=== PATIENT | male | born 1975 | race Caucasian/White ===

== ENCOUNTER 2022-09-11 08:50 | Emergency (ER) | payer SELFPAY ==
[2022-09-11 09:08] VITALS: BP 180/93; PULSE 55; RESP 16; TEMP 37; O2SAT 98
--- NOTE | 2022-09-11 09:30 | DI.CT_ITS ---
Exam(s) CT ABDOMEN PELVIS W EXAM: CT ABDOMEN PELVIS W CLINICAL HISTORY: lower abdominal pain. TECHNIQUE: Imaging Protocol: Axial computed tomography images with coronal and sagittal reformatted images were created and reviewed CONTRAST MATERIAL: Intravenous: Omnipaque-350 100cc Oral: None COMPARISON: No exams were available for comparison FINDINGS: VISUALIZED LUNG BASES: No nodules nor pleural effusions evident. ABDOMEN: There is no ascites. LIVER: There are no focal hepatic lesions evident . GALLBLADDER/BILIARY: No obvious gallbladder pathology. CBD is not dilated. PANCREAS: No evidence of pancreatic mass nor dilatation of the pancreatic duct. SPLEEN: Spleen is not enlarged. No obvious intrasplenic lesions. Splenic and portal veins are paten t. ADRENALS: There are no significant adrenal masses. KIDNEYS: Right kidney is slightly malrotated. No evidence of horseshoe kidney. No cysts evident. N o solid renal masses. No calculi nor hydronephrosis.. ABDOMINAL AORTA: Abdominal aorta is not enlarged. LYMPH NODES:There is no retroperitoneal nor paraaortic adenopathy. ABDOMINAL WALL: No evidence of significant anterior abdominal wall nor inguinal hernia. GI: There is no evidence of bowel obstruction, free air, nor abscess. PELVIS: GI: No evidence of obvious appendicitis.Sigmoid diverticulosis. No obvious acute diverticulitis. LYMPH NODES: There is no intrapelvic nor inguinal adenopathy. REPRODUCTIVE: Prostate size normal. URINARY BLADDER: Collapsed. No obvious abnormality. OSSEOUS: No fractures. No significant osseous lesions. IMPRESSION: 1. Sigmoid diverticulosis without obvious acute diverticulitis. 2. Appendix is difficult to identify on this study but there is no inflammatory streaking in the righ t lower quadrant to suggest obvious acute appendicitis. 3. No obvious acute abnormality in the abdomen pelvis. 4. No ascites. RADIATION DOSE DELIVERED: 803.52mGy.cm Total DLP DATA REPOSITORY: All CT scans at this facility are submitted to the National Radiology Data Registry (NRDR) Dose Index Registry (DIR) with the [employer] (A[employer]). RADIATION OPTIMIZATION: All CT scans at this facility use at least one of these dose optimization te chniques: automated exposure control; mA and/or kV adjustment per patient size (includes targeted exa ms where dose is matched to clinical indication); or iterative reconstruction.
--- NOTE | 2022-09-11 09:38 | W.ED.GENAD ---
Discharge Plan Disposition Patient Disposition: Home Condition: Stable Discharge Details Chief Complaint: Abd Prob Clinical Impression: Abdominal pain Primary Care Provider: Matteo Quinonez ED Provider: Lonnie Flores Home Meds and New Rx's Prescriptions: No Action No Known Home Meds Discharge Instructions Instructions: Abdominal Pain (ED) Additional Instructions: Your blood work and cat scan do not show any concerning findings at this time follow up with your primary care provider especially if symptoms are not improving if you feel more ill, have severe worsening pain or persistent vomiting return to the emergency department Medical Decision Making 47 yo male who denies chronic medical problems comes in with one week of intermittent lower abdominal discomfort. He states he has never had symptoms like this in the past. Denies dysuria, fevers, chills, testicle pain. He arrives stable and localizes the pain to the left lower and right lower abdomen. He has a soft nondistended abdomen, no tenderness in the upper abdomen, is tender in the rlq and llq without guarding, no testicle swelling or tenderness. Unclear etiology for his symptoms, will obtain cbc, cmp, lipase and ct abdomen/pelvis to further evaluate labs and imaging unremarkable. HE is stable and now has no tenderness on exam, unclear etiology for his pain but given reassuring workup he is stable for d/c, advised to f/u with pcp, return precautions given Differential Diagnosis Differential Diagnosis: diverticulitis, cystitis, appendicitis Imaging Data Radiologic Study: Attestation: I personally reviewed and interpreted this imaging study as follows: Imaging: CT Scan Radiologist's impression: no acute findings Lab Data Lab results reviewed: Yes I reviewed the patient's lab results. HPI General Mode of arrival: ambulatory. Date/Time Provider Initiated Documentation: 09/11/22 08:51. Limitations to Documentation: no limitations. Information obtained by: patient. History of Present Illness 47 year old M presents to the emergency department with the chief complaint of abdominal pain, described as moderate, Patient started experiencing this week(s) (1) and it has been constant. No relieving factors improve symptom(s), No exacerbating factors reported . Patient notes no other symptoms.. Patient did receive the following treatments prior to arrival, none Related Data Home Medications Medication Instructions Recorded Confirmed Unknown [No Known Home Meds] 10/01/21 09/11/22 Allergies Allergy/AdvReac Type Severity Reaction Status Date / Time No Known Allergies Allergy Unverified 09/11/22 09:12 General Stated Complaint: Abd Prob DERIK: 4 Review of Systems All systems reviewed & are unremarkable except as noted in HPI and below Constitutional Constitutional: Denies chills, Denies fever(s) and Denies weakness Eyes Eyes: Denies loss of vision Cardiovascular Cardiovascular: Denies chest pain and Denies dyspnea Respiratory Respiratory: Denies cough and Denies dyspnea Gastrointestinal Gastrointestinal: Denies nausea and Denies vomiting Musculoskeletal Musculoskeletal: Denies joint swelling Integumentary/Breasts Skin/Breast: Denies rash Neurologic Neurologic: Denies loss of vision and Denies weakness PFSH All Active Problems (Updated 09/11/22 @ 10:43 by Lonnie Flores MD) Abdominal pain (Acute) Heart murmur (Acute) Family History (Updated 09/24/21 @ 15:24 by Babs Lan) Father Alcohol use disorder Mother Hypertension Brother Hypertension Social History (Updated 10/01/21 @ 10:47 by Aline Lechuga LPN) Smoking/Tobacco Use Status: Former Tobacco Use Tobacco: How many years used: 5 Smoking risk assessment performed?: Yes Alcohol Intake: never Drug use: Daily Substance use type: marijuana Adopted: No Caregiver/Support person: No Foster care: No Household members: none Housing: apartment Number of Children: 1 number of grandchildren: 0 Communication Needs: None Education Level: high school Do you need help understanding health information?: Never current occupation: [employer] Pets and animals: No Sexually active: No Do you think of yourself as: straight/heterosexual Current gender identity: male What is your relationship status?: How often do you talk on the phone with friends or family?: three or more times per week How often do you get together with friends or relatives?: twice per week Do you belong to any clubs or organized social groups?: no Panel score (0-1 are the most socially isolated patients): 1 What type of physical activity do you participate in: weight lifting and running Duration: 60-90 minutes/day Frequency: daily Tamy/Roman Catholic: None Special tamy needs: No Seatbelt use: always Helmet use: Yes Helmet use: always Drive intox or ride w/intox otr company driver: No Working smoke detector in home: Yes Fire extinguisher in home: Yes Carbon monox detector in home: Yes Do you feel safe at home: Yes Do you feel safe in your relationship?: Yes Victim of physical abuse: No Victim of emotional abuse: No Victim of sexual abuse: No Exam Const General: no acute distress Orientation: alert HENMT Head: normal to inspection Ears: external ears normal General nose exam: external nose normal Mouth: moist mucous membranes Eyes General: appearance normal, both eyes and all related structures Neck Neck: normal visual inspection Resp Effort & Inspection: normal respiratory effort and able to speak in complete sentences Cardio Rate: regular rate GI Palpation: soft and tender Skin General skin exam: no rashes or lesions noted Neuro General: patient alert and patient oriented x3 Extrem General: normal to inspection Psych Mental Status: mental status grossly normal Course Vital Signs Vital signs: Vital Signs Temperature 37.0 C 09/11/22 09:08 Pulse 55 L 09/11/22 09:08 Respiratory Rate 16 09/11/22 09:08 Blood Pressure 180/93 H 09/11/22 09:08 Pulse Oximetry 98 09/11/22 09:08 Temperature 37.0 C 09/11/22 09:08 Temperature Source Skin 09/11/22 09:08 Pulse 55 L 09/11/22 09:08 Respiratory Rate 16 09/11/22 09:08 Blood Pressure 180/93 H 09/11/22 09:08 Blood Pressure Position Sitting 09/11/22 09:08 Pulse Oximetry 98 09/11/22 09:08 Oxygen Delivery Method Room Air 09/11/22 09:08 Oxygen Flow Rate 0 09/11/22 09:08 Comment 09/11/22 09:08
[2022-09-11] MEDS: Normal Saline 1,000 ML 1000 ML IV (09:49)
[2022-09-11 09:51] LABS: Bilirubin Negative (Negative); Blood Negative (Negative); Clarity Clear (Clear); Glucose Negative (Negative); Ketones Negative (Negative); Leukocyte Esterase Negative (Negative); Nitrite Negative (Negative); Urobilinogen 0.2 EU/dL (Up TO 0.2)
[2022-09-11 09:56] LABS: Abs Immature Grans 0.04 10^3/uL (0.0-0.06); Absolute Basophil Count 0.05 10^3/uL (0.0-0.2); Absolute Lymphocyte Count 2.22 10^3/uL (1.2-3.4); Absolute Monocyte Count 0.51 10^3/uL (0.1-0.8); Absolute Neutrophil Count 3.25 10^3/uL (1.2-6.7); Basophils % 0.8; Eosinophils % 1.6; HCT 44.2 % (40.0-50.0); Immature Grans % 0.6; MCH 30.5 pg (27.0-33.0); MCHC 33.9 % (32.0-36.0); MCV 90 fL (80-95); MPV 9.6 fL (8.0-11.0); Monocytes % 8.3; Neutrophils % 52.7; Platelet Count 233 10^3/uL (130-400); RBC 4.91 10^6/uL (4.36-5.78); RDW 13.1 % (11.8-14.1); RDW-SD 43.2 fL; WBC 6.17 10^3/uL (4.4-10.8)
[2022-09-11 10:10] LABS: ALT 40 U/L (16-63); AST 21 U/L (15-37); Albumin 4.3 g/dL (3.4-5.0); Alkaline Phosphatase 73 U/L (46-116); Anion Gap 5.6 mmol/L (3-11); BUN 13 mg/dL (7-18); Bilirubin, Total 0.3 mg/dL (0.2-1.0); CO2 30.4 mmol/L (21.0-32.0); CREATININE 1.1 mg/dL (0.70-1.30); Calcium 9.2 mg/dL (8.5-10.1); Chloride 104 mmol/L (98-107); Estimated GFR 82.29 (mL/min/1.73m2); Glucose 112 mg/dL (74-106); Lipase 61 U/L (73-393); Magnesium 2.1 mg/dL (1.8-2.4); Potassium 4.2 mmol/L (3.5-5.1); Sodium 140 mmol/L (136-145); Total Protein 7.8 g/dL (6.4-8.2)
[2022-09-11] MEDS: Normal Saline - Diluent 50 ML VIAL IJ (10:18)
[2022-09-11] MEDS: Omnipaque 350 MG/ML 100 ML BTL IJ (10:18)
[2022-09-11] MEDS: Normal Saline Flush 10 ML SYR IVP (10:19)
--- NOTE | 2022-09-11 10:27 | DI.VRAD_ITS ---
PROCEDURE INFORMATION: Exam: CT Abdomen And Pelvis With Contrast Exam date and time: 09/11/2022 10:01 AM Age: 47 years old Clinical indication: Abdominal pain; Patient HX: Lower abd pain, worsening over the course of the day TECHNIQUE: Imaging protocol: Computed tomography of the abdomen and pelvis with contrast. COMPARISON: No relevant prior studies available. FINDINGS: Lungs: Visualized lung bases are clear. No pleural effusions. Liver: Very mild periportal edema is noted, most likely secondary to aggressive intravenous hydration/volume status (noting distention of the inferior vena cava). A well-circumscribed tiny focus of hypoattenuation at the dome of the liver is likely a cyst though measures less than 5 mm, too small to definitively characterize. Gallbladder and bile ducts: Unremarkable. No calcified gallstones. No intrahepatic or extrahepatic biliary ductal dilation. Pancreas: Unremarkable. Spleen: Unremarkable. The spleen is normal in size. Adrenal glands: Unremarkable. Kidneys and ureters: Normal and symmetric renal enhancement. No hydronephrosis or hydroureter. No suspicious renal masses. An incidental small focus of cortical hypoattenuation in the upper pole of the left kidney measures less than 1 cm, too small to characterize. The right kidney is malrotated. Stomach and bowel: The stomach is nondilated. The small and large bowel are normal in caliber. There are a few scattered diverticula in the sigmoid colon without associated pericolonic inflammatory changes to suggest diverticulitis. Appendix: The appendix is not definitively identified, however there are no pericecal inflammatory changes to suggest acute appendicitis. Intraperitoneal space: Unremarkable. No ascites, fluid collection, or pneumoperitoneum. Retroperitoneal space: Unremarkable. No retroperitoneal collection or mass. Vasculature: Very mild atherosclerotic calcifications in the aortoiliac system. The abdominal aorta is normal in caliber. Lymph nodes: No pathologically enlarged lymph nodes. Urinary bladder: Almost completely collapsed/decompressed and therefore not well characterized. No gross abnormality. Reproductive: Unremarkable as visualized. Bones/joints: Mild degenerative changes. No suspicious osseous lesions. Soft tissues: Unremarkable. IMPRESSION: 1. No acute abnormality in the abdomen or pelvis. No evidence of an inflammatory or obstructive process. 2. Several incidental/nonemergent findings are discussed in the body of the report. Dictated and Authenticated by: Maisha Gamble MD. Ordering:SONALI Fleming MD
[2022-09-11 10:49] VITALS: BP 176/89; PULSE 53; RESP 16; O2SAT 98
== END 2022-09-11 10:48 | disposition home or self-care (01) ==
PROVIDERS: Emergency Provider Emergency Medicine; PCP Family Medicine
DX: R10.31 Right lower quadrant pain (principal); R10.32 Left lower quadrant pain; R10.813 Right lower quadrant abdominal tenderness; R10.814 Left lower quadrant abdominal tenderness
CPT/HCPCS: 36415; 80053; 83690; 96360; 99285; 74177; 81003; 83735; 85025; 99284; J3490

== ENCOUNTER 2024-09-13 12:23 | Outpatient (REF) | payer SELFPAY ==
[2024-09-13 15:31] LABS: Abs Immature Grans 0.02 10^3/uL (0.0-0.06); Absolute Basophil Count 0.05 10^3/uL (0.0-0.2); Absolute Eosinophil Count 0.09 10^3/uL (0.0-0.7); Absolute Lymphocyte Count 1.94 10^3/uL (1.2-3.4); Absolute Monocyte Count 0.51 10^3/uL (0.1-0.8); Absolute Neutrophil Count 3.33 10^3/uL (1.2-6.7); Basophils % 0.8 %; Eosinophils % 1.5 %; HCT 47.6 % (40.0-50.0); HGB 15.9 g/dL (13.5-17.5); Immature Grans % 0.3 %; Lymphocytes % 32.7 %; MCH 30.6 pg (27.0-33.0); MCHC 33.4 % (32.0-36.0); MCV 92 fL (80-95); MPV 10.1 fL (8.0-11.0); Monocytes % 8.6 %; Neutrophils % 56.1 %; Platelet Count 208 10^3/uL (130-400); RDW 13.1 % (11.8-14.1); RDW-SD 44.8 fL; WBC 5.94 10^3/uL (4.4-10.8)
[2024-09-13 16:39] LABS: ALT 41 U/L (16-63); AST 26 U/L (15-37); Albumin 4.4 g/dL (3.4-5.0); Alkaline Phosphatase 74 U/L (46-116); Anion Gap 6.7 mmol/L (3-11); BUN 15 mg/dL (7-18); Bilirubin, Total 0.48 mg/dL (0.2-1.0); CO2 30.3 mmol/L (21.0-32.0); CREATININE 1.3 mg/dL (0.70-1.30); Calcium 9.8 mg/dL (8.5-10.1); Chloride 104 mmol/L (98-107); Estimated GFR 66.51 (mL/min/1.73m2); Glucose 103 mg/dL (74-106); Potassium 5.1 mmol/L (3.5-5.1); Sodium 141 mmol/L (136-145); Total Protein 7.5 g/dL (6.4-8.2)
[2024-09-14 19:02] LABS: PSA, Screening 0.4 ng/mL (<=3.5)
== END 2024-09-13 12:24 | disposition home or self-care (01) ==
LOC: NCHCN 12:23
PROVIDERS: Visit Provider Nurse Practitioner Family
DX: R39.11 Hesitancy of micturition (principal); R10.30 Lower abdominal pain, unspecified
CPT/HCPCS: 80053; 84153; 85025